=== PATIENT | female | born 1945 | race Caucasian/White ===

== ENCOUNTER 2021-11-20 20:11 | Inpatient (IN) ==
[2021-11-20] MEDS ORDERED: *HR* Heparin 5,000 UNIT/ML VIAL IVP PRN ×2 (23:24)
[2021-11-20] MEDS ORDERED: *HR* Heparin 5,000 UNIT/ML VIAL IVP ONE (23:24)
[2021-11-20] MEDS ORDERED: *HR* Metoprolol 5 MG/5 ML VIAL IVP ONE (23:31)
[2021-11-20] MEDS ORDERED: Perflutren Lipid Microsphere 1.3 ML in 0.9 % Sodium Chloride 8.7 ML IVP PRN (23:36)
[2021-11-21] MEDS ORDERED: Acetaminophen 325 MG TABLET PO PRN (00:19)
[2021-11-21] MEDS ORDERED: Naloxone 0.4 MG/ML INJ IVP PRN (00:19)
[2021-11-21 00:41] LABS: Hematocrit 44.6 % (35.3-44.9); Hemoglobin 15.2 g/dL (11.5-15.4); Mean Corpuscular HGB Conc 34.1 g/dL (31.6-35.5); Mean Corpuscular Hemoglobin 30.5 pg (28.0-33.3); Mean Corpuscular Volume 89.4 fL (83.0-100.0); Platelet Count 205 K/mcL (140-400); Red Blood Count 4.99 M/mcL (3.82-4.97); Red Cell Distribution Width 13.7 % (11.5-14.5); White Blood Count 7.3 K/mcL (4.3-11.1)
[2021-11-21 00:44] LABS: Heparin anti-factor XA UFH < 0.04 IU/mL (0.30-0.70); INR 1.1; Prothrombin Time 12.3 Seconds (9.4-12.1)
[2021-11-21 00:45] LABS: Activated Partial Thrombo Time 41.2 Seconds (26.0-36.0)
[2021-11-21 00:56] LABS: % Iron Saturation 13 % (15-50); Iron 52 mcg/dL (50-170); Transferrin 296 mg/dL (203-362)
[2021-11-21 00:57] LABS: Troponin I < 0.03 ng/mL (< 0.04)
[2021-11-21 01:09] LABS: Thyroid Stimulating Hormone 8.128 mcIU/mL (0.340-5.600)
[2021-11-21 01:14] LABS: Bilirubin,Urine Negative (Negative); Blood,Urine Negative (Negative); Clarity,Urine Clear (Clear); Color,Urine Colorless (Yellow); Glucose,Urine (UA) Normal (Normal); Hyaline Casts,Urine Few per lpf (None Seen); Ketones,Urine Negative (Negative); Leukocyte Esterase,Urine Small (Negative); Mucus,Urine Few per lpf (None-Few); Nitrite,Urine Negative (Negative); Protein,Urine Negative (Neg-Trace); RBC,Urine 0-3 per hpf (0-3); Specific Gravity,Urine 1.016 (1.010-1.025); Squamous Epithelial Cell,Urine Few per hpf (None-Few); Urobilinogen,Urine Normal (Normal)
[2021-11-21 01:16] LABS: Ferritin 189 ng/mL (10-120)
[2021-11-21 01:20] LABS: Magnesium 2.2 mg/dL (1.6-2.6); Phosphorous 3.8 mg/dL (2.7-4.5)
[2021-11-21] MEDS: Heparin 25,000UNIT/250ML 1/2NS 25,000 UNIT/250 ML IV.SOLN IVC SCH ×2 (01:20→23:16)
[2021-11-21 01:23] LABS: Folate > 22.3 ng/mL (3.0-16.0); Vitamin B12 290 pg/mL (250-1100); Vitamin D 25 Hydroxy 5 ng/mL (30-80)
[2021-11-21] MEDS: DilTIAZem 50 MG/50 ML IV.SOLN IVC SCH ×3 (01:23→13:33)
[2021-11-21] MEDS ORDERED: *HR* Metoprolol 5 MG/5 ML VIAL IVP ONE (01:32)
[2021-11-21 03:36] LABS: BUN/Creatinine Ratio 12 (6-26); Blood Urea Nitrogen 10 mg/dL (8-23); Calcium 8.7 mg/dL (8.6-10.3); Carbon Dioxide 25 mEq/L (23-29); Chloride 103 mEq/L (98-107); Chol/HDL Ratio 3.9 (0-4.9); Cholesterol 197 mg/dL (< 200); Glucose 134 mg/dL (70-105); HDL Cholesterol 51 mg/dL (40-59); LDL Cholesterol,Calculated 136 mg/dL (< 100); Magnesium 2.1 mg/dL (1.6-2.6); Osmolality,Calculated 285 (280-300); Potassium 3.3 mEq/L (3.5-5.1); Sodium 137 mEq/L (136-145); Triglycerides 50 mg/dL (< 150); eGFR For African Americans > 60 (> 60); eGFR For Non-African Americans > 60 (> 60)
[2021-11-21] MEDS: Cyanocobalamin (B-12) 1,000 MCG TABLET PO SCH (08:03)
[2021-11-21] MEDS: DilTIAZem CD (24hr) 180 MG CAP.ER.24H PO SCH (08:03)
[2021-11-21] MEDS: Furosemide 20 MG/2 ML VIAL IVP SCH ×2 (08:03→19:36)
[2021-11-21] MEDS: Cholecalciferol (D-3) 1,000 UNIT (25MCG) TABLET PO SCH (08:03)
[2021-11-21] MEDS: Metoprolol XL (24 HR) Succ 25 MG TAB.ER.24H PO SCH (12:05)
[2021-11-21] MEDS ORDERED: DilTIAZem CD (24hr) 180 MG CAP.ER.24H PO ONE (15:06)
[2021-11-21] MEDS: Latanoprost 2.5 ML BOTTLE BOTH EYES SCH (23:16)
[2021-11-22] MEDS: DilTIAZem 50 MG/50 ML IV.SOLN IVC SCH (02:28)
[2021-11-22] MEDS: Heparin 25,000UNIT/250ML 1/2NS 25,000 UNIT/250 ML IV.SOLN IVC SCH (05:14)
[2021-11-22 06:36] LABS: Hematocrit 44.6 % (35.3-44.9); Mean Corpuscular HGB Conc 33.6 g/dL (31.6-35.5); Mean Corpuscular Hemoglobin 30.4 pg (28.0-33.3); Mean Corpuscular Volume 90.3 fL (83.0-100.0); Mean Platelet Volume 11.9 fL (9.4-12.4); Platelet Count 199 K/mcL (140-400); Red Blood Count 4.94 M/mcL (3.82-4.97); Red Cell Distribution Width 13.8 % (11.5-14.5); White Blood Count 7.2 K/mcL (4.3-11.1)
[2021-11-22 06:57] LABS: BUN/Creatinine Ratio 17 (6-26); Blood Urea Nitrogen 14 mg/dL (8-23); Calcium 9.5 mg/dL (8.6-10.3); Carbon Dioxide 25 mEq/L (23-29); Chloride 101 mEq/L (98-107); Glucose 94 mg/dL (70-105); Magnesium 2.1 mg/dL (1.6-2.6); Osmolality,Calculated 286 (280-300); Phosphorous 4.1 mg/dL (2.7-4.5); Potassium 3.7 mEq/L (3.5-5.1); Sodium 138 mEq/L (136-145); eGFR For African Americans > 60 (> 60); eGFR For Non-African Americans > 60 (> 60)
[2021-11-22] MEDS: Furosemide 20 MG/2 ML VIAL IVP SCH ×2 (08:36→19:43)
[2021-11-22] MEDS: Metoprolol XL (24 HR) Succ 25 MG TAB.ER.24H PO SCH (08:36)
[2021-11-22] MEDS: Cyanocobalamin (B-12) 1,000 MCG TABLET PO SCH (08:36)
[2021-11-22] MEDS: DilTIAZem CD (24hr) 180 MG CAP.ER.24H PO SCH (08:36)
[2021-11-22] MEDS: Cholecalciferol (D-3) 1,000 UNIT (25MCG) TABLET PO SCH (08:37)
[2021-11-22] MEDS ORDERED: Lidocaine Viscous Oral Soln 15 ML SOLUTION MM PRN (11:52)
[2021-11-22] MEDS ORDERED: *HR* FentaNYL (PF) 100 MCG/2 ML VIAL IVP PRN (11:52)
[2021-11-22] MEDS ORDERED: 0.9 % Sodium Chloride 500 ML IVC ONE (11:52)
[2021-11-22] MEDS: *HR* Midazolam HCl 5 MG/5 ML VIAL IVP PRN ×2 (12:25→12:42)
[2021-11-22] MEDS ORDERED: *HR* Digoxin 0.5 MG/2 ML AMPUL IVP ONE (15:05)
[2021-11-22] MEDS ORDERED: DilTIAZem 50 MG/50 ML IV.SOLN IVC SCH (19:30)
[2021-11-22] MEDS: Apixaban 5 MG TABLET PO SCH (19:43)
[2021-11-22] MEDS: Latanoprost 2.5 ML BOTTLE BOTH EYES SCH (19:43)
[2021-11-23] MEDS ORDERED: DilTIAZem CD (24hr) 120 MG CAP.ER.24H PO SCH (09:00)
[2021-11-23] MEDS ORDERED: Sennosides/Docusate Sodium TABLET PO PRN (09:15)
[2021-11-23] MEDS: lisinopriL 5 MG TABLET PO SCH (09:21)
[2021-11-23] MEDS: Metoprolol XL (24 HR) Succ 25 MG TAB.ER.24H PO SCH (09:21)
[2021-11-23] MEDS: Cholecalciferol (D-3) 1,000 UNIT (25MCG) TABLET PO SCH (09:21)
[2021-11-23] MEDS: Cyanocobalamin (B-12) 1,000 MCG TABLET PO SCH (09:21)
[2021-11-23] MEDS: Apixaban 5 MG TABLET PO SCH ×2 (09:22→21:53)
[2021-11-23] MEDS: Furosemide 20 MG/2 ML VIAL IVP SCH (09:22)
[2021-11-23 11:44] LABS: BUN/Creatinine Ratio 18 (6-26); Blood Urea Nitrogen 18 mg/dL (8-23); Calcium 9.2 mg/dL (8.6-10.3); Carbon Dioxide 29 mEq/L (23-29); Chloride 100 mEq/L (98-107); Glucose 76 mg/dL (70-105); Magnesium 2.2 mg/dL (1.6-2.6); Osmolality,Calculated 287 (280-300); Potassium 3.2 mEq/L (3.5-5.1); Sodium 138 mEq/L (136-145); eGFR For African Americans > 60 (> 60); eGFR For Non-African Americans 53 (> 60)
[2021-11-23] MEDS: Latanoprost 2.5 ML BOTTLE BOTH EYES SCH (21:53)
[2021-11-24 05:25] LABS: BUN/Creatinine Ratio 24 (6-26); Blood Urea Nitrogen 18 mg/dL (8-23); Carbon Dioxide 28 mEq/L (23-29); Chloride 104 mEq/L (98-107); Glucose 95 mg/dL (70-105); Magnesium 2.3 mg/dL (1.6-2.6); Osmolality,Calculated 292 (280-300); Phosphorous 3.3 mg/dL (2.7-4.5); Potassium 3.2 mEq/L (3.5-5.1); Sodium 140 mEq/L (136-145); eGFR For African Americans > 60 (> 60); eGFR For Non-African Americans > 60 (> 60)
[2021-11-24 06:30] LABS: ABG Base Excess 5 mEq/L (-2 to 3); ABG HCO3 30 mEq/L (21-27); ABG Oxygen Saturation 96 % (95-98); ABG PCO2 49 mmHg (35-45); ABG PH 7.41 pH Units (7.32-7.45); ABG PO2 81 mmHg (85-104); ABG TCO2 32 mEq/L (20-26)
[2021-11-24] MEDS: Apixaban 5 MG TABLET PO SCH (08:51)
[2021-11-24] MEDS: lisinopriL 5 MG TABLET PO SCH (08:51)
[2021-11-24] MEDS: Cyanocobalamin (B-12) 1,000 MCG TABLET PO SCH (08:51)
[2021-11-24] MEDS: Metoprolol XL (24 HR) Succ 25 MG TAB.ER.24H PO SCH (08:51)
[2021-11-24] MEDS: Cholecalciferol (D-3) 1,000 UNIT (25MCG) TABLET PO SCH (08:52)
[2021-11-24] MEDS ORDERED: Furosemide 20 MG TABLET PO SCH (09:00)
[2021-11-24 15:32] VITALS: BP 110/72; PULSE 59; TEMP 97.6; O2SAT 97
[2021-11-25] MEDS ORDERED: Metoprolol XL (24 HR) Succ 25 MG TAB.ER.24H PO SCH (09:00)
== END 2021-11-24 16:08 | disposition home or self-care (01) | DRG 308 ==
LOC: 2ANU → SUATTDRO 22:53
PROVIDERS: ADMIT Internal Medicine; ATTEND Internal Medicine

== ENCOUNTER 2022-01-22 17:20 | Observation (INO) ==
[2022-01-22 18:14] LABS: Basophils # 0.1 K/mcL (0.0-0.2); Basophils % 0.7 %; Eosinophils % 0.6 %; Hematocrit 28.5 % (35.3-44.9); Hemoglobin 9.4 g/dL (11.5-15.4); Immature Granulocytes % 0.9 % (0-4); Lymphocytes # 1.3 K/mcL (0.6-4.6); Lymphocytes % 18.2 %; Mean Corpuscular Hemoglobin 31.9 pg (28.0-33.3); Mean Corpuscular Volume 96.6 fL (83.0-100.0); Mean Platelet Volume 11.2 fL (9.4-12.4); Monocytes # 0.6 K/mcL (0.0-1.3); Monocytes % 8.7 %; Neutrophils # 4.9 K/mcL (1.6-8.9); Platelet Count 170 K/mcL (140-400); Red Blood Count 2.95 M/mcL (3.82-4.97); Red Cell Distribution Width 14.1 % (11.5-14.5); Segmented Neutrophils % 70.9 %; White Blood Count 6.9 K/mcL (4.3-11.1)
[2022-01-22 18:29] LABS: BUN/Creatinine Ratio 16 (6-26); Blood Urea Nitrogen 16 mg/dL (8-23); Calcium 8.6 mg/dL (8.6-10.3); Carbon Dioxide 26 mEq/L (23-29); Chloride 102 mEq/L (98-107); Glucose 144 mg/dL (70-105); Osmolality,Calculated 286 (280-300); Potassium 3.5 mEq/L (3.5-5.1); Sodium 136 mEq/L (136-145); eGFR For African Americans > 60 (> 60); eGFR For Non-African Americans 56 (> 60)
[2022-01-22 18:30] LABS: Troponin I < 0.03 ng/mL (< 0.04)
[2022-01-22] MEDS ORDERED: Acetaminophen 325 MG TABLET PO ONE (20:11)
[2022-01-22] MEDS ORDERED: Naloxone 0.4 MG/ML INJ IVP PRN (22:50)
[2022-01-22] MEDS ORDERED: Melatonin 3 MG TABLET PO PRN (22:50)
[2022-01-22] MEDS ORDERED: Ondansetron 4 MG/2 ML VIAL IVP PRN (22:50)
[2022-01-22] MEDS: Acetaminophen 325 MG TABLET PO PRN (23:40)
[2022-01-23 03:35] LABS: Basophils # 0.1 K/mcL (0.0-0.2); Basophils % 1.1 %; Eosinophils # 0.1 K/mcL (0.0-0.6); Eosinophils % 0.9 %; Hematocrit 25.1 % (35.3-44.9); Hemoglobin 8.2 g/dL (11.5-15.4); Immature Granulocytes % 0.9 % (0-4); Lymphocytes # 1.3 K/mcL (0.6-4.6); Lymphocytes % 23.3 %; Mean Corpuscular HGB Conc 32.7 g/dL (31.6-35.5); Mean Corpuscular Hemoglobin 31.3 pg (28.0-33.3); Mean Corpuscular Volume 95.8 fL (83.0-100.0); Mean Platelet Volume 11.1 fL (9.4-12.4); Monocytes # 0.6 K/mcL (0.0-1.3); Monocytes % 10.8 %; Neutrophils # 3.6 K/mcL (1.6-8.9); Platelet Count 150 K/mcL (140-400); Red Blood Count 2.62 M/mcL (3.82-4.97); Red Cell Distribution Width 14.1 % (11.5-14.5); White Blood Count 5.7 K/mcL (4.3-11.1)
[2022-01-23 03:45] LABS: Activated Partial Thrombo Time 34.2 Seconds (26.0-36.0)
[2022-01-23 04:01] LABS: Alanine Aminotransferase 12 Units/L (7-52); Albumin 3.5 g/dL (3.5-5.7); Albumin/Globulin Ratio 1.7 (1.1-2.2); Alkaline Phosphatase 35 Units/L (34-104); Aspartate Amino Transferase 11 Units/L (13-39); BUN/Creatinine Ratio 18 (6-26); Bilirubin,Total 0.3 mg/dL (0.3-1.0); Blood Urea Nitrogen 13 mg/dL (8-23); Calcium 8.6 mg/dL (8.6-10.3); Carbon Dioxide 26 mEq/L (23-29); Chloride 107 mEq/L (98-107); Globulin 2.1 g/dL (2.4-3.5); Glucose 108 mg/dL (70-105); Magnesium 2.3 mg/dL (1.6-2.6); Osmolality,Calculated 289 (280-300); Phosphorous 2.8 mg/dL (2.7-4.5); Potassium 3.5 mEq/L (3.5-5.1); Sodium 139 mEq/L (136-145); Total Protein 5.6 g/dL (6.4-8.9); Troponin I < 0.03 ng/mL (< 0.04); eGFR For African Americans > 60 (> 60); eGFR For Non-African Americans > 60 (> 60)
[2022-01-23] MEDS: Metoprolol XL (24 HR) Succ 25 MG TAB.ER.24H PO SCH (12:58)
[2022-01-23 13:37] LABS: Hematocrit 26.5 % (35.3-44.9); Hemoglobin 8.7 g/dL (11.5-15.4)
[2022-01-23] MEDS ORDERED: SODIUM CHLORIDE/NAHCO3/KCL/PEG 4,000 ML SOLN.RECON PO ONE (17:00)
[2022-01-23] MEDS: Acetaminophen 325 MG TABLET PO PRN (17:23)
[2022-01-23] MEDS: Latanoprost 2.5 ML BOTTLE BOTH EYES SCH (20:24)
[2022-01-24 03:04] LABS: Basophils # 0.1 K/mcL (0.0-0.2); Basophils % 0.9 %; Eosinophils # 0.1 K/mcL (0.0-0.6); Eosinophils % 0.7 %; Hematocrit 26.7 % (35.3-44.9); Hemoglobin 8.9 g/dL (11.5-15.4); Immature Granulocytes % 1.3 % (0-4); Lymphocytes # 1.2 K/mcL (0.6-4.6); Lymphocytes % 18.4 %; Mean Corpuscular HGB Conc 33.3 g/dL (31.6-35.5); Mean Corpuscular Hemoglobin 32.1 pg (28.0-33.3); Mean Corpuscular Volume 96.4 fL (83.0-100.0); Mean Platelet Volume 11.3 fL (9.4-12.4); Monocytes # 0.6 K/mcL (0.0-1.3); Monocytes % 8.6 %; Neutrophils # 4.7 K/mcL (1.6-8.9); Nucleated Red Blood Cells 0.3 /100 WBC (0); Platelet Count 164 K/mcL (140-400); Red Blood Count 2.77 M/mcL (3.82-4.97); Red Cell Distribution Width 13.8 % (11.5-14.5); Segmented Neutrophils % 70.1 %; White Blood Count 6.8 K/mcL (4.3-11.1)
[2022-01-24 03:22] LABS: BUN/Creatinine Ratio 11 (6-26); Blood Urea Nitrogen 8 mg/dL (8-23); Calcium 8.6 mg/dL (8.6-10.3); Carbon Dioxide 26 mEq/L (23-29); Chloride 104 mEq/L (98-107); Glucose 121 mg/dL (70-105); Osmolality,Calculated 284 (280-300); Potassium 3.9 mEq/L (3.5-5.1); Sodium 137 mEq/L (136-145); eGFR For African Americans > 60 (> 60); eGFR For Non-African Americans > 60 (> 60)
[2022-01-24] MEDS ORDERED: Cyanocobalamin (B-12) 1,000 MCG TABLET PO SCH (09:00)
[2022-01-24] MEDS ORDERED: Furosemide 20 MG TABLET PO SCH (09:00)
[2022-01-24] MEDS: Metoprolol XL (24 HR) Succ 25 MG TAB.ER.24H PO SCH (09:01)
[2022-01-24] MEDS: Latanoprost 2.5 ML BOTTLE BOTH EYES SCH (20:38)
[2022-01-24] MEDS: Acetaminophen 325 MG TABLET PO PRN (20:56)
[2022-01-25] MEDS ORDERED: Dextrose 4 GM Chewable Tablets PO PRN ×2 (01:19)
[2022-01-25] MEDS ORDERED: *HR* Dextrose 50 % in Water (Syg) 50 ML SYRINGE IVP PRN (01:19)
[2022-01-25] MEDS ORDERED: D5% in Water 1,000 ML IVC PRN (01:19)
[2022-01-25 01:58] LABS: Hematocrit 26.7 % (35.3-44.9); Hemoglobin 8.5 g/dL (11.5-15.4)
[2022-01-25] MEDS ORDERED: Lidocaine -MPF 2% 5 ML VIAL ONE (10:00)
[2022-01-25] MEDS ORDERED: Ondansetron 4 MG/2 ML VIAL ONE (10:47)
[2022-01-25] MEDS ORDERED: *HR* Metoprolol 5 MG/5 ML VIAL IVP ONE (10:48)
[2022-01-25] MEDS ORDERED: *HR* Propofol 200 MG/20 ML VIAL IVP ONE (10:49)
[2022-01-25 11:36] VITALS: BP 139/75; PULSE 68; TEMP 97.5; O2SAT 93
== END 2022-01-25 14:28 | disposition home or self-care (01) ==
LOC: EMEROOARM 17:20 → 3ANU 17:20 → SUATTDRO 22:12 → 3ANU 22:35
PROVIDERS: ADMIT Internal Medicine; ATTEND Family Medicine
PROC: ENDOCBX (2022-01-25 11:30)